=== PATIENT | female | born 1985 | race Caucasian/White ===

== ENCOUNTER 2023-04-20 20:52 | Emergency (ER) | payer BC ==
[2023-04-20] MEDS ORDERED: HYDROmorphone 0.5 MG/0.5 ML Syringe IM ONE (21:34)
[2023-04-20] MEDS ORDERED: oxyCODONE 5 MG Tab PO ONE (22:28)
== END 2023-04-20 23:09 | disposition home or self-care (01) ==
LOC: JP.ED 20:52
DX: S83.92XA Sprain of unspecified site of left knee, initial encounter (principal); Z88.0 Allergy status to penicillin; X50.1XXA Overexertion from prolonged static or awkward postures, initial encounter; Y93.9 Activity, unspecified
CPT/HCPCS: 73564; 96372; 99283; A9270; J1170